=== PATIENT | female | born 1975 | race Caucasian/White ===

== ENCOUNTER 2022-05-26 16:29 | Inpatient (IN) | payer SELFPAY ==
[2022-05-26] VITALS (82 sets, daily range): BP systolic 125–170; BP diastolic 59–98; PULSE 85–116; RESP 14–20; TEMP 36.4–37.1; O2SAT 80–100; BMI 30.2
[2022-05-26 14:29] LABS: Hematocrit 35.4 % (37-47); Hemoglobin 11.9 g/dL (12.0-15.0); Mean Corp Hgb Conc 33.6 g/dL (32-36); Mean Corpuscular Hgb 29.6 pg (27.0-32.0); Mean Corpuscular Volume 88.1 fL (81-99); Mean Platelet Vol. 11.1 fl (6.2-12.0); Platelet Count 191 K/mm3 (150-450); RBC Distribution Width CV 13.7 % (11.6-14.6); RBC Distribution Width SD 44.1 fl (35.1-43.9); Red Blood Count 4.02 M/mm3 (4.2-5.4); White Blood Count 9.6 K/mm3 (4.4-11.0)
[2022-05-26 14:42] LABS: Protein, Urine (Random) 15.7 mg/dL (<11.9); Protein:Creat Ratio 351 mg/g CRE (0-200)
[2022-05-26 14:50] LABS: Partial Thromboplast Time 28.5 Seconds (24.1-36.2); Prothrombin Time (Protime)PT. 13.2 SECONDS (11.7-14.9)
[2022-05-26 14:52] LABS: AST(SGOT) 22 U/L (15-37); Alanine Aminotransfer ALT/SGPT 33 U/L (13-56); Creatinine, Serum 0.57 mg/dL (0.55-1.02); EST Glomerular Filtration Rate 122 mL/min (>60); Est Glom Filt Rate - Afr Amer 148 mL/min (>60); Estimated Creatinine Clearance 107.63 ml/min; Uric Acid 4.8 mg/dL (2.6-6.0)
[2022-05-26 15:00] LABS: AST(SGOT) 25 U/L (15-37); Alanine Aminotransfer ALT/SGPT 34 U/L (13-56); Albumin, Serum 2.7 g/dL (3.2-5.0); Alkaline Phosphatase 139 U/L (45-117); Bilirubin, Direct 0.22 mg/dL (0.00-0.30); Globulin 4.2 g/dL (2.2-4.2); Protein, Total 6.9 g/dL (6.4-8.2)
[2022-05-26] MEDS: Labetalol (Prefilled) 20 MG/4 ML IV ×2 (15:20→21:59)
[2022-05-26] MEDS: Labetalol 100 MG Tablet PO (15:49)
[2022-05-26] MEDS: 0.9% Saline Lock 10 ML Syringe IV ×2 (17:36→21:59)
[2022-05-26] MEDS: Lactated Ringers 1,000 ML 999 ML IV (17:45)
[2022-05-26] MEDS: Acetaminophen 500 MG Tablet 1000 MG PO ×2 (18:06→22:25)
[2022-05-26] MEDS: Lactated Ringers 1,000 ML 150 ML IV (18:45)
[2022-05-26] MEDS: Sodium Citrate/Citric Acid 30 ML UDC PO (18:50)
[2022-05-26] MEDS: Cefazolin 2 GM in 0.9% Normal Saline 100 ML IV (18:52)
--- NOTE | 2022-05-26 19:03 | PCM.HP.OB ---
HPI - General General Date of Admission: 05/26/22 Date of Service: 05/26/22 HPI Narrative JEFF ABBOTT, is a 46 F who presents with elevated blood pressure. Maternal Data Information Final ROOSEVELT: 07[birth year]17[birth year]22 Gestational age: 32&4 [facility]SH [facility], [facility] Medical History (Updated 05/26/22 @ 21:[address] Bryson Lay MD) Anxiety History of blood transfusion Severe pre-eclampsia affecting childbirth Stillborn, normal Superficial varicosities Vaginal after Home Medications [id number] 1 mg tablet 1 tab PO DAILY 05/26/22 [History Last Taken Unknown] Allergy/AdvReac Type Severity Reaction Status Date / Time No Known Allergies Allergy Verified 05/26/22 14:11 Surgical History (Updated 05/26/22 @ 19:[address] Bryson Lay MD) H/O dilation and curettage Previous section Previous section Social History Smoking Status: Never smoker Vital Signs Vital Signs Vital Signs: 05/26/22 14:27 05/26/22 14:27 05/26/22 14:27 Temperature Temperature Source Pulse Rate 102 H 110 H Respiratory Rate Blood Pressure 169/83 H Blood Pressure Mean BP Systolic 169 BP Diastolic 83 Blood Pressure Source Blood Pressure Position Blood Pressure Location Pulse Ox Oxygen Delivery Method 05/26/22 14:27 05/26/22 14:27 05/26/22 14:27 Temperature Temperature Source Temporal Pulse Rate 111 H Respiratory Rate Blood Pressure Blood Pressure Mean BP Systolic BP Diastolic Blood Pressure Source Blood Pressure Position Blood Pressure Location Pulse Ox 98 Oxygen Delivery Method 05/26/22 14:27 05/26/22 14:27 05/26/22 14:32 Temperature 98.1 F Temperature Source Pulse Rate 104 H Respiratory Rate Blood Pressure Blood Pressure Mean BP Systolic BP Diastolic Blood Pressure Source Blood Pressure Position Blood Pressure Location Pulse Ox 98 Oxygen Delivery Method 05/26/22 14:32 05/26/22 14:37 05/26/22 14:37 Temperature Temperature Source Pulse Rate 104 H Respiratory Rate Blood Pressure Blood Pressure Mean BP Systolic BP Diastolic Blood Pressure Source Blood Pressure Position Blood Pressure Location Pulse Ox 99 97 Oxygen Delivery Method 05/26/22 14:39 05/26/22 14:39 05/26/22 14:42 Temperature Temperature Source Pulse Rate 108 H 109 H Respiratory Rate Blood Pressure 158/82 H Blood Pressure Mean BP Systolic 158 BP Diastolic 82 Blood Pressure Source Blood Pressure Position Blood Pressure Location Pulse Ox Oxygen Delivery Method 05/26/22 14:42 05/26/22 14:47 05/26/22 14:47 Temperature Temperature Source Pulse Rate 108 H Respiratory Rate Blood Pressure Blood Pressure Mean BP Systolic BP Diastolic Blood Pressure Source Blood Pressure Position Blood Pressure Location Pulse Ox 99 98 Oxygen Delivery Method 05/26/22 14:49 05/26/22 14:49 05/26/22 14:52 Temperature Temperature Source Pulse Rate 110 H 113 H Respiratory Rate Blood Pressure 162/88 H Blood Pressure Mean BP Systolic 162 BP Diastolic 88 Blood Pressure Source Blood Pressure Position Blood Pressure Location Pulse Ox Oxygen Delivery Method 05/26/22 14:52 05/26/22 14:57 05/26/22 14:57 Temperature Temperature Source Pulse Rate 108 H Respiratory Rate Blood Pressure Blood Pressure Mean BP Systolic BP Diastolic Blood Pressure Source Blood Pressure Position Blood Pressure Location Pulse Ox 98 98 Oxygen Delivery Method 05/26/22 14:59 05/26/22 14:59 05/26/22 15:02 Temperature Temperature Source Pulse Rate 108 H 116 H Respiratory Rate Blood Pressure 170/89 H Blood Pressure Mean BP Systolic 170 BP Diastolic 89 Blood Pressure Source Blood Pressure Position Blood Pressure Location Pulse Ox Oxygen Delivery Method 05/26/22 15:02 05/26/22 15:07 05/26/22 15:07 Temperature Temperature Source Pulse Rate 100 Respiratory Rate Blood Pressure Blood Pressure Mean BP Systolic BP Diastolic Blood Pressure Source Blood Pressure Position Blood Pressure Location Pulse Ox 97 98 Oxygen Delivery Method 05/26/22 15:09 05/26/22 15:09 05/26/22 15:12 Temperature Temperature Source Pulse Rate 107 H 106 H Respiratory Rate Blood Pressure 166/90 H Blood Pressure Mean BP Systolic 166 BP Diastolic 90 Blood Pressure Source Blood Pressure Position Blood Pressure Location Pulse Ox Oxygen Delivery Method 05/26/22 15:12 05/26/22 15:17 05/26/22 15:17 Temperature Temperature Source Pulse Rate 106 H Respiratory Rate Blood Pressure Blood Pressure Mean BP Systolic BP Diastolic Blood Pressure Source Blood Pressure Position Blood Pressure Location Pulse Ox 98 97 Oxygen Delivery Method 05/26/22 15:20 05/26/22 15:20 05/26/22 15:22 Temperature Temperature Source Pulse Rate 115 H 105 H Respiratory Rate Blood Pressure 161/83 H Blood Pressure Mean BP Systolic 161 BP Diastolic 83 Blood Pressure Source Blood Pressure Position Blood Pressure Location Pulse Ox Oxygen Delivery Method 05/26/22 15:22 05/26/22 15:27 05/26/22 15:27 Temperature Temperature Source Pulse Rate 93 Respiratory Rate Blood Pressure Blood Pressure Mean BP Systolic BP Diastolic Blood Pressure Source Blood Pressure Position Blood Pressure Location Pulse Ox 97 96 Oxygen Delivery Method 05/26/22 15:29 05/26/22 15:29 05/26/22 15:29 Temperature Temperature Source Pulse Rate 97 Respiratory Rate Blood Pressure 153/83 H Blood Pressure Mean BP Systolic 153 BP Diastolic 83 Blood Pressure Source Blood Pressure Position Blood Pressure Location Pulse Ox 94 Oxygen Delivery Method 05/26/22 15:32 05/26/22 15:32 05/26/22 15:37 Temperature Temperature Source Pulse Rate 97 92 Respiratory Rate Blood Pressure Blood Pressure Mean BP Systolic BP Diastolic Blood Pressure Source Blood Pressure Position Blood Pressure Location Pulse Ox 95 Oxygen Delivery Method 05/26/22 15:37 05/26/22 15:39 05/26/22 15:39 Temperature Temperature Source Pulse Rate 97 Respiratory Rate Blood Pressure 142/85 H Blood Pressure Mean BP Systolic 142 BP Diastolic 85 Blood Pressure Source Blood Pressure Position Blood Pressure Location Pulse Ox 96 Oxygen Delivery Method 05/26/22 15:39 05/26/22 15:42 05/26/22 15:42 Temperature Temperature Source Pulse Rate 93 Respiratory Rate Blood Pressure Blood Pressure Mean BP Systolic BP Diastolic Blood Pressure Source Blood Pressure Position Blood Pressure Location Pulse Ox 94 95 Oxygen Delivery Method 05/26/22 15:47 05/26/22 15:47 05/26/22 15:49 Temperature Temperature Source Pulse Rate 101 H Respiratory Rate Blood Pressure 150/87 H Blood Pressure Mean BP Systolic 150 BP Diastolic 87 Blood Pressure Source Blood Pressure Position Blood Pressure Location Pulse Ox 98 Oxygen Delivery Method 05/26/22 15:49 05/26/22 15:52 05/26/22 15:52 Temperature Temperature Source Pulse Rate 96 89 Respiratory Rate Blood Pressure Blood Pressure Mean BP Systolic BP Diastolic Blood Pressure Source Blood Pressure Position Blood Pressure Location Pulse Ox 97 Oxygen Delivery Method 05/26/22 15:57 05/26/22 15:58 05/26/22 15:59 Temperature Temperature Source Pulse Rate 97 Respiratory Rate Blood Pressure 152/92 H Blood Pressure Mean BP Systolic 152 BP Diastolic 92 Blood Pressure Source Blood Pressure Position Blood Pressure Location Pulse Ox 80 Oxygen Delivery Method 05/26/22 15:59 05/26/22 16:02 05/26/22 16:02 Temperature Temperature Source Pulse Rate 93 92 Respiratory Rate Blood Pressure Blood Pressure Mean BP Systolic BP Diastolic Blood Pressure Source Blood Pressure Position Blood Pressure Location Pulse Ox 97 Oxygen Delivery Method 05/26/22 16:07 05/26/22 16:07 05/26/22 16:09 Temperature Temperature Source Pulse Rate 93 Respiratory Rate Blood Pressure 151/90 H Blood Pressure Mean BP Systolic 151 BP Diastolic 90 Blood Pressure Source Blood Pressure Position Blood Pressure Location Pulse Ox 97 Oxygen Delivery Method 05/26/22 16:09 05/26/22 16:12 05/26/22 16:12 Temperature Temperature Source Pulse Rate 96 92 Respiratory Rate Blood Pressure Blood Pressure Mean BP Systolic BP Diastolic Blood Pressure Source Blood Pressure Position Blood Pressure Location Pulse Ox 95 Oxygen Delivery Method 05/26/22 16:17 05/26/22 16:17 05/26/22 16:19 Temperature Temperature Source Pulse Rate 97 Respiratory Rate Blood Pressure 148/82 H Blood Pressure Mean BP Systolic 148 BP Diastolic 82 Blood Pressure Source Blood Pressure Position Blood Pressure Location Pulse Ox 96 Oxygen Delivery Method 05/26/22 16:19 05/26/22 16:22 05/26/22 16:22 Temperature Temperature Source Pulse Rate 97 95 Respiratory Rate Blood Pressure Blood Pressure Mean BP Systolic BP Diastolic Blood Pressure Source Blood Pressure Position Blood Pressure Location Pulse Ox 95 Oxygen Delivery Method 05/26/22 16:25 05/26/22 16:25 05/26/22 16:27 Temperature Temperature Source Pulse Rate 96 94 Respiratory Rate Blood Pressure Blood Pressure Mean BP Systolic BP Diastolic Blood Pressure Source Blood Pressure Position Blood Pressure Location Pulse Ox 94 Oxygen Delivery Method 05/26/22 16:27 05/26/22 16:29 05/26/22 16:29 Temperature Temperature Source Pulse Rate 94 Respiratory Rate Blood Pressure 144/81 H Blood Pressure Mean BP Systolic 144 BP Diastolic 81 Blood Pressure Source Blood Pressure Position Blood Pressure Location Pulse Ox 95 Oxygen Delivery Method 05/26/22 16:32 05/26/22 16:32 05/26/22 16:37 Temperature Temperature Source Pulse Rate 100 95 Respiratory Rate Blood Pressure Blood Pressure Mean BP Systolic BP Diastolic Blood Pressure Source Blood Pressure Position Blood Pressure Location Pulse Ox 97 Oxygen Delivery Method 05/26/22 16:37 05/26/22 16:39 05/26/22 16:39 Temperature Temperature Source Pulse Rate 96 Respiratory Rate Blood Pressure 149/83 H Blood Pressure Mean BP Systolic 149 BP Diastolic 83 Blood Pressure Source Blood Pressure Position Blood Pressure Location Pulse Ox 97 Oxygen Delivery Method 05/26/22 16:42 05/26/22 16:42 05/26/22 16:47 Temperature Temperature Source Pulse Rate 97 96 Respiratory Rate Blood Pressure Blood Pressure Mean BP Systolic BP Diastolic Blood Pressure Source Blood Pressure Position Blood Pressure Location Pulse Ox 97 Oxygen Delivery Method 05/26/22 16:47 05/26/22 16:52 05/26/22 16:52 Temperature Temperature Source Pulse Rate 99 Respiratory Rate Blood Pressure Blood Pressure Mean BP Systolic BP Diastolic Blood Pressure Source Blood Pressure Position Blood Pressure Location Pulse Ox 98 98 Oxygen Delivery Method 05/26/22 16:57 05/26/22 16:57 05/26/22 16:58 Temperature Temperature Source Pulse Rate 93 Respiratory Rate Blood Pressure 158/86 H Blood Pressure Mean BP Systolic 158 BP Diastolic 86 Blood Pressure Source Blood Pressure Position Blood Pressure Location Pulse Ox 98 Oxygen Delivery Method 05/26/22 16:58 05/26/22 17:02 05/26/22 17:02 Temperature Temperature Source Pulse Rate 96 100 Respiratory Rate Blood Pressure Blood Pressure Mean BP Systolic BP Diastolic Blood Pressure Source Blood Pressure Position Blood Pressure Location Pulse Ox 97 Oxygen Delivery Method 05/26/22 17:07 05/26/22 17:07 05/26/22 17:13 Temperature Temperature Source Pulse Rate 99 Respiratory Rate Blood Pressure 154/87 H Blood Pressure Mean BP Systolic 154 BP Diastolic 87 Blood Pressure Source Blood Pressure Position Blood Pressure Location Pulse Ox 97 Oxygen Delivery Method 05/26/22 17:13 05/26/22 17:13 05/26/22 17:13 Temperature Temperature Source Pulse Rate 96 94 Respiratory Rate Blood Pressure Blood Pressure Mean BP Systolic BP Diastolic Blood Pressure Source Blood Pressure Position Blood Pressure Location Pulse Ox 97 Oxygen Delivery Method 05/26/22 17:44 05/26/22 17:44 05/26/22 17:43 Temperature Temperature Source Pulse Rate 96 Respiratory Rate Blood Pressure 158/83 H Blood Pressure Mean BP Systolic 158 BP Diastolic 83 Blood Pressure Source Blood Pressure Position Blood Pressure Location Pulse Ox 98 Oxygen Delivery Method 05/26/22 17:48 05/26/22 17:48 05/26/22 17:53 Temperature Temperature Source Pulse Rate 94 95 Respiratory Rate Blood Pressure Blood Pressure Mean BP Systolic BP Diastolic Blood Pressure Source Blood Pressure Position Blood Pressure Location Pulse Ox 99 Oxygen Delivery Method 05/26/22 17:53 05/26/22 18:14 05/26/22 18:14 Temperature Temperature Source Pulse Rate 93 Respiratory Rate Blood Pressure 166/77 H Blood Pressure Mean BP Systolic 166 BP Diastolic 77 Blood Pressure Source Blood Pressure Position Blood Pressure Location Pulse Ox 98 Oxygen Delivery Method 05/26/22 18:29 05/26/22 18:29 05/26/22 18:44 Temperature Temperature Source Pulse Rate 99 Respiratory Rate Blood Pressure 169/83 H 170/86 H Blood Pressure Mean BP Systolic 169 170 BP Diastolic 83 86 Blood Pressure Source Blood Pressure Position Blood Pressure Location Pulse Ox Oxygen Delivery Method 05/26/22 18:44 05/26/22 17:42 Temperature 98.0 F Temperature Source Temporal Pulse Rate 98 98 Respiratory Rate 16 Blood Pressure 158/83 H Blood Pressure Mean 108 BP Systolic BP Diastolic Blood Pressure Source Monitor Blood Pressure Position Semi-Fowlers Blood Pressure Location Right Arm Pulse Ox 98 Oxygen Delivery Method Room Air Weight Weight: 176 lb Body Mass Index (BMI) 30.2 Physical Exam Const alert, oriented x3 and no apparent distress Chest inspection of chest normal GI soft to palpation, non-tender and non-distended Inspection: gravid Labs Labs Labs: Blood Type A POSITIVE Antibody Screen NEGATIVE Hct 35.4 % (37-47) L Hgb 11.9 g/dL (12.0-15.0) L Assessment & Plan (1) Severe pre-eclampsia affecting childbirth: COMMENT: 32&4 PLAN: (1) Severe range BP's - s/p IV labetalol. Labs normal other than elevated urine protein. Plan of care discussed with who recommends delivery as with suspected nephrotic syndrome & plan is for palliative care. (2) MOD - discussed R/B/A of options and patient desires to proceed with repeat section. informed consent signed. (3) Sterilization request - plan for bilateral salpingectomy. Risks of regret & failure reviewed. (4) Suspect congenital nephrotic syndrome - Plan is for palliative care. Please see [facility] records for details. (2) Previous section:
--- NOTE | 2022-05-26 19:21 | FALS_PTH ---
PATIENT: JEFF ABBOTT LOC: [facility] U#:[id number] AGE/SX: 46/F ROOM: [facility]018 RE05/26/[address]: Dr. Bryson Lay MD : 1975 BED: 1 DIS: 05/28/2022 SPEC #: [id number] RECD: 05/26/22 23:38 STATUS: ANETA REYaquelin #: [id number] DERRICK: 05/26/22 19:[address]: Bryson Lay DEPT: SURGICAL PATHOLOGY RECD BY: Jarred Donald ENTERED: 05/27/22 08:28 SP TYPE: FALL TUBES OTHR DR: Armando Sheehan PA-C Tissues: Fallopian tube Procedures: Surgery Specimen Level II Surgery Specimen Level IV HEADER OPERATION: Tubal ligation PRE-OP DIAGNOSIS: Sterilization TISSUE SUBMITTED: Fallopian tubes MICROSCOPIC DIAGNOSIS Right and left fallopian tubes, bilateral salpingectomies: Complete cross-sections of fallopian tubes. One fallopian tube with benign paratubal cyst. AM:maco 05/28/2022 MICROSCOPIC DESCRIPTION Slides are reviewed. GROSS DESCRIPTION Received in fixative is one container labeled with the patient's name and designated bilateral fallopian tubes. The specimen consists of two fallopian tubes with an average length of 7 cm and has an average diameter of 0.8 cm. Both fallopian tubes have normal fimbriated ends. One fallopian tube contains a smooth, glistening clear fluid-filled cyst measuring 2.2 cm adjacent to the fimbrial end. Bowling Ball Grader sections are submitted in two cassettes as follows: 1 - fallopian tube with cyst, 2 - the other fallopian tube. / AM:maco 05/27/2022 TC:3 CPT: 45977, 10631
[2022-05-26] MEDS: miSOPROStol 200 MCG Tablet 1000 MCG RC (19:27)
[2022-05-26] MEDS: Lactated Ringers 1,000 ML 50 ML IV (20:30)
--- NOTE | 2022-05-26 20:42 | EX.PCM.OBRPT ---
Maternal Data Information Final ROOSEVELT: 07/17/22 Gestational age: 32&4 [place] Doctor Who Attended Delivery: Krystal Webber Details Operative Information Date of Procedure: 05/26/22 Pre-Operative Diagnosis: (1) Prior section (2) Severe preeclampsia (3) Infant with suspected congenital nephrotic syndrome (4) Sterilization request Post-Operative Diagnosis: Same Indications for : Repeat Elective Indications Narrative: The patient was taken to the operating room where spinal anesthesia was placed & found to be adequate. She was prepped and draped in the dorsal supine position with a leftward tilt. A Pfannenstiel skin incision was made approximately 2 cm above the symphysis pubis and carried through to the underlying fascia with the scalpel. The fascia was incised incised in the midline and extended laterally with the Guillen scissors. The rectus muscles were in the midline and the peritoneum was entered carefully and bluntly. The peritoneal incision was stretched and the bladder blade was inserted. Vesicouterine peritoneum was tented up, incised & then bladder flap created gently. The uterine incision was made in a low transverse fashion with the scalpel and extended superiorly and inferiorly with blunt dissection. The 's head was brought to the incision in the flexed position and delivered without difficulty. The head was gently guided to allow delivery of the anterior and posterior shoulders. The body then delivered with fundal pressure in the standard fashion. The 3VC cord was clamped and cut. The was handed off to the waiting pediatric ophthalmologist. The placenta was delivered with fundal massage and gentle traction in the standard fashion. The uterus was exteriorized and cleared of clots and debris. 1000mcg intrauterine cytotec placed. The uterine incision was closed with #1 Vicryl suture in a running locked fashion. Monocryl suture was used in an imbricating fashion. 2 additional figure of eight sutures were placed to obtain excellent hemostasis. The incision was examined and was found to be hemostatic. Attention was turned to the fallopian tubes. The right fallopian tube was grasped, cauterized & excised with the ligasure. Excellent hemostasis obtained. Then the left fallopian tube was grasped, cauterized & excised with the ligasure. Excellent hemostasis obtained. The uterus was returned to the abdominal cavity. Tubal excision sites were again examined & found to be hemostatic. After irrigating Lexy was placed over the uterine incision as some areas were denuded (but hemostatic). At the left uterine angle fibrillar was placed due to a small area of scant bleeding. After placing the fibrillar the area was monitored & excellent hemostasts noted. The rectus muscle was examined and any bleeding was Bovie cauterized. The fascia was closed with PDS suture in a running standard fashion. The subcutaneous tissue was examining and any bleeding was Bovie cauterized. The subcutaneous tissue was reapproximated with interrupted sutures. The skin was closed in a subcuticular fashion. All sponge, lap, and needle counts were correct. The patient was taken to her room for recovery in a stable condition. Classification: BETSY Procedure Type: bilateral salpingectomy central office technician #1: Keri Contreras Type of Anesthesia: Spinal Antibiotic Given: Ancef 2 grams IV x1 Drain: Oswald to straight drain Estimated Blood Loss: 1,000ml Fluids Replaced: 1,000ml Procedure Start Time: 19:15 Procedure Stop Time: 20:15 Findings Description of Procedure: Normal maternal uterus and adnexa Presentation: Positive for Vertex Amniotic Membrane Rupture Type: Artificial Amniotic Fluid Description: - (Anhydramnios) Placental Delivery Description: Expressed Placenta Disposition: [facility] Specimen(s) Sent to Pathology: None Cord Vessel Description: 3 Vessels Cord Entanglement: Around neck x 1, loose Infant A Gender: Male (No apgars as for palliative care) Delayed Cord Clamping: No Complications Complications: None
[2022-05-26] MEDS: Magnesium Sulfate 4gm/100mL 4 GM/100 ML IV.SOLN. IV (20:47)
[2022-05-26] MEDS: Magnesium Sulfate 20 GM/500 ML BAG IV (21:10)
[2022-05-26] MEDS: Ketorolac 30 MG/ML Syringe IV (22:25)
[2022-05-26] MEDS: Labetalol 200 MG Tablet PO (22:25)
[2022-05-26 23:42] LABS: Pathology Specimen OB SEE PATHOLOGY REPORT
[2022-05-27] VITALS (49 sets, daily range): BP systolic 99–131; BP diastolic 56–84; PULSE 72–90; RESP 14–18; TEMP 36.2–37; O2SAT 96–99
--- NOTE | 2022-05-27 01:30 | NURSING ---
incentive spirometer reviewed with pt and pt verbalizes understanding. pt aware of need to perform 10 reps each hour while awake. this RN observed first round using IS. will continue to remind pt to use.
[2022-05-27] MEDS: Ketorolac 30 MG/ML Syringe IV ×3 (04:32→16:11)
[2022-05-27] MEDS: Acetaminophen 500 MG Tablet 1000 MG PO ×4 (04:32→23:48)
[2022-05-27] MEDS: 0.9% Saline Lock 10 ML Syringe IV (04:33)
[2022-05-27 04:57] LABS: Hematocrit 33.2 % (37-47); Hemoglobin 11.5 g/dL (12.0-15.0); Mean Corp Hgb Conc 34.6 g/dL (32-36); Mean Corpuscular Hgb 30.5 pg (27.0-32.0); Mean Corpuscular Volume 88.1 fL (81-99); Mean Platelet Vol. 11.1 fl (6.2-12.0); Platelet Count 182 K/mm3 (150-450); RBC Distribution Width CV 13.6 % (11.6-14.6); RBC Distribution Width SD 43.7 fl (35.1-43.9); Red Blood Count 3.77 M/mm3 (4.2-5.4); White Blood Count 14.2 K/mm3 (4.4-11.0)
--- NOTE | 2022-05-27 06:33 | NURSING ---
dr hernandez updated on most recent pt BP 99/56. states to hold AM dose of labetalol and reevaluate prior to next administration time. invoicing machine operator updated on plan of care. pt verbalizes understanding.
[2022-05-27] MEDS: Enoxaparin 40 MG/0.4 ML Syringe SC (06:52)
[2022-05-27] MEDS: Magnesium Sulfate 20 GM/500 ML BAG IV ×2 (06:52→15:59)
--- NOTE | 2022-05-27 07:11 | PN.OBGYN_ITS ---
Subjective Subjective Korina controlled. She is coping OK. Objective Data Objective Data Vital Signs: Vital Signs Temp Pulse Resp BP Pulse Ox O2 Del Method 97.5 F L 84 14 107/67 99 Room Air 05/27/22 06:59 05/27/22 06:59 05/27/22 06:59 05/27/22 06:59 05/27/22 06:59 05/27/22 06:59 Oxygen Delivery Method Room Air Weight: 176 lb Body Mass Index (BMI) 30.2 Intake & Output: Intake and Output for Last 24 Hours 05/25/22 05/26/22 05/27/22 23:59 23:59 23:59 Intake Total 1512.5 / 1512.5 710 / 710 Output Total 1000 / 1000 675 / 675 Balance 512.5 / 512.5 35 / 35 Lab / Micro Data Result Diagrams: 05/27/22 04:40 05/26/22 14:15 Labs: Laboratory Results - last 24 hr 05/26/22 14:15: WBC 9.6, RBC 4.02 L, Hgb 11.9 L, Hct 35.4 L, MCV 88.1, MCH 29.6, MCHC 33.6, RDW Std Deviation 44.1 H, RDW Coeff of Christophe 13.7, Plt Count 191, MPV 11.1 05/26/22 14:15: PT 13.2, INR 1.0, APTT 28.5 05/26/22 14:15: U Random Total Protein 15.7 H, Urine Creatinine 44.70, Protein/Creatinin Ratio 351 H 05/26/22 14:15: Creatinine 0.57, Estim Creat Clear Calc 107.63, Est GFR (MDRD) Af Amer 148, Est GFR (MDRD) Non-Af 122, Uric Acid 4.8, AST 22, ALT 33 05/26/22 14:15: Total Bilirubin 0.60, Direct Bilirubin 0.22, AST 25, ALT 34, Alkaline Phosphatase 139 H, Total Protein 6.9, Albumin 2.7 L, Globulin 4.2 05/26/22 16:00: Blood Type A POSITIVE, Antibody Screen NEGATIVE 05/27/22 04:40: WBC 14.2 H, RBC 3.77 L, Hgb 11.5 L, Hct 33.2 L, MCV 88.1, MCH 30 .5, MCHC 34.6, RDW Std Deviation 43.7, RDW Coeff of Christophe 13.6, Plt Count 182, MPV 11.1 Micro: Microbiology 05/26/22 18:20 Nasal Secretion SARS-CoV-2 Antigen (Rapid) - Final Physical Exam Const alert, oriented x3 and no apparent distress HEENT normocephalic GI soft to palpation, non-tender and non-distended GI Narrative: fundus firm, mid & below umbilicus Incision - bandage c/d/i Extremity normal to inspection and no calf tenderness Assessment & Plan (1) Severe pre-eclampsia affecting childbirth: COMMENT: POD#1 PLAN: Severe preE - continue magnesium for 24 hours. Labetalol 200mg tid & hold for low BP. Heme - HDS ID - AF, no signs infection GI - ADAT - peralta Routine care (2) : PLAN: Patient is coping appropriately & supportive.
[2022-05-27] MEDS: Senna/Docusate Sodium 1 Tablet PO (09:38)
[2022-05-27] MEDS: Labetalol 200 MG Tablet PO ×2 (14:17→21:20)
--- NOTE | 2022-05-27 16:05 | CASEMGMT ---
Social Work Labor and Delivery Unit Consult received due to bereavement and loss. Records reviewed and collaborated with nursing staff. Family has been present today, and the father of baby was able to take the baby home for burial. Presented to patient's room and found patient/mother of baby sleeping with a sister reading quietly in the room. Considering all that as occurred since last evening with , baby's passing and multiple visitors let MOB continue to sleep. Will try again later today as time allows, or tomorrow 05.28.2022 to check in for emotional support and resources as indicated. -KOREY Rosas, REGISTRAR [employer]
[2022-05-27] MEDS: Lactated Ringers 1,000 ML 50 ML IV (16:14)
[2022-05-27] MEDS: Ibuprofen 600 MG Tablet PO (21:20)
[2022-05-28] VITALS (9 sets, daily range): BP systolic 120–142; BP diastolic 60–77; PULSE 71–83; RESP 14–18; TEMP 36.1–37; O2SAT 97–99
[2022-05-28] MEDS: Ibuprofen 600 MG Tablet PO ×2 (02:09→10:13)
[2022-05-28] MEDS: Acetaminophen 500 MG Tablet 1000 MG PO ×2 (05:30→13:41)
[2022-05-28] MEDS: Labetalol 200 MG Tablet PO ×2 (05:31→13:41)
--- NOTE | 2022-05-28 07:25 | NURSING ---
bedside report given to Aamir Rogers RN who is assuming care of pt at this time
--- NOTE | 2022-05-28 08:23 | PCM.PN.OB ---
Subjective Subjective Doing well per patient and nursing staff. Ambulating and taking PO without difficulty. Voiding and passing flatus. Pain controlled. Denies headache, visual changes, chest pain, shortness of breath, leg pain or increased bleeding. Lochia normal. Doing well emotionally with loss of . Objective Data Objective Data Vital Signs: Vital Signs Temp Pulse Resp BP Pulse Ox O2 Del Method 98.6 F 78 18 121/69 H 98 Room Air 05/28/22 05:23 05/28/22 08:02 05/28/22 05:23 05/28/22 08:02 05/28/22 05:23 05/28/22 05:23 Oxygen Delivery Method Room Air Weight: 176 lb Body Mass Index (BMI) 30.2 Intake & Output: Intake and Output for Last 24 Hours 05/26/22 05/27/22 05/28/22 23:59 23:59 23:59 Intake Total 1512.5 / 1512.5 3110.00 / 3110.00 Output Total 1000 / 1000 3555 / 3555 Balance 512.5 / 512.5 -445.00 / -445.00 Lab / Micro Data Result Diagrams: 05/27/22 04:40 05/26/22 14:15 Micro: Microbiology 05/26/22 18:20 Nasal Secretion SARS-CoV-2 Antigen (Rapid) - Final Physical Exam Const alert and oriented x3 General Appearance: cooperative Orientation / Consciousness: awake, oriented to person, oriented to place and oriented to time Exam Limitations: no limitations HEENT normocephalic Head and Scalp: normal to inspection, normocephalic and atraumatic Face and Sinus: normal facial exam Eyes General Eye: normal appearance of both eyes Neck full ROM Chest Chest: symmetrical chest wall rise Resp normal respiratory effort and normal air movement Auscultation: clear to auscultation bilaterally Cardio regular rate, regular rhythm, S1 normal heart sound, S2 normal heart sound, no murmurs, no rub, no gallops and no clicks GI normal to inspection, nondistended, normoactive bowel sounds and non-tender GI Narrative: Dressing dry and intact appearance of the vagina normal Bladder / Kidney Exam: no CVA tenderness Back/Spine normal ROM Extremity normal to inspection and full ROM Skin no rashes or lesions noted Neuro oriented x3, CN's II-XII intact bilaterally and moves all extremities Sensorium / Orientation: awake, alert and oriented to person Motor Exam: clonus absent Deep Tendon Reflexes: Rt Patellar (L4): 2+ and Lt Patellar (L4): 2+ Assessment & Plan (1) : (2) Status post repeat low transverse section: (3) Severe pre-eclampsia affecting childbirth: COMMENT: POD#2 PLAN: Plan 1) POD #2 2) BP mildly elevated, labetalol 200mg PO TID. Magnesium stopped at 1 on 05/27/22 3) Pain controlled 4) I&O 5) Would like discharged today. Discussed would recommend 24 post magnesium infusion. Will consult due to slight elevation in BP prior to discharge. 6) Will need follow up in 1 week for incision and Blood pressure check.
[2022-05-28] MEDS: Senna/Docusate Sodium 1 Tablet PO (10:12)
[2022-05-28] MEDS: Enoxaparin 40 MG/0.4 ML Syringe SC (10:13)
--- NOTE | 2022-05-28 14:26 | PCM.DC.SUM ---
Providers Date of Admission: 05/26/22 Primary Care Physician: Dr. Armando Sheehan PA-C Reason For Visit: Diagnosis Discharge Diagnosis (1) : Status: Acute Code(s): P96.9 - Condition originating in the period, unspecified (2) Status post repeat low transverse section: Status: Acute Code(s): Z98.891 - History of uterine scar from previous surgery (3) Severe pre-eclampsia affecting childbirth: Status: Acute Code(s): O14.14 - Severe pre-eclampsia complicating childbirth Plan 1) POD #2 2) BP mildly elevated, labetalol 200mg PO TID. Magnesium stopped at 2110 on 05/27/22 3) Pain controlled 4) I&O 5) Would like discharged today. Discussed would recommend 24 post magnesium infusion. Will consult due to slight elevation in BP prior to discharge. 6) Will need follow up in 1 week for incision and Blood pressure check. Medications at Discharge Home Medications [id number] 1 mg tablet 1 tab PO DAILY 05/26/22 acetaminophen 500 mg tablet 1,000 mg PO Q6H #30 tabs 05/28/22 ibuprofen 600 mg tablet 600 mg PO Q6H #30 tabs 05/28/22 labetalol 200 mg tablet 200 mg PO TID #30 tabs 05/28/22 sennosides 8.6 mg-docusate sodium 50 mg tablet (Stool Softener-Stimulant Laxative) 1 - 2 tab PO DAILY #30 tabs 05/28/22 Weight / BMI Weight Weight: 176 lb Body Mass Index (BMI) 30.2 ABG / Lab / Microbiology Data Result Diagrams: 05/27/22 04:40 05/26/22 14:15 Microbiology: Microbiology 05/26/22 18:20 Nasal Secretion SARS-CoV-2 Antigen (Rapid) - Final Meaningful Use Info Meaningful Use Diagnoses (Choose all that apply): None applicable Discharge Plan Admission Admit Date/Time: 05/26/22 16:29 Primary Reason for Your Visit: section, Preeclampsia Attending Provider: Bryson Lay Primary Care Provider: Armando Sheehan Instructions Additional Instructions / Restrictions: Please check blood pressure prior to taking medication three times a day. If blood pressure is 100/60 please hold medication till next dose. If blood pressure is 160/110 please notify provider. If blood pressure increasing please call to be seen sooner. Discharge Orders/Prescriptions Prescriptions: New acetaminophen 500 mg Tablet 1,000 mg PO Q6H Qty: 30 0RF ibuprofen 600 mg Tablet 600 mg PO Q6H Qty: 30 0RF labetalol 200 mg Tablet 200 mg PO TID Qty: 30 0RF sennosides-docusate sodium [Stool Softener-Stimulant Laxat] 8.6-50 mg Tablet 1 - 2 tab PO DAILY Qty: 30 0RF Continued [id number] 1 mg Tablet 1 tab PO DAILY Referrals / Follow Up: Armando Sheehan PA-C [Primary Care Provider] - Bryson Lay MD [Med Staff - Active Staff] - (Follow up in one week for incision and blood pressure check ) Disposition Disposition (needs filled in before D/C Order can be placed): Home, Self Care
--- NOTE | 2022-06-01 09:53 | NURSING ---
Follow up call completed this morning. Mother reports she is coping fairly well, states they are doing their best to move on and states Dani is a great helper ad support person. She reports he is coping well too. She reports that aside from hormonal night sweats she is sleeping very well. Reports she is monitoring her bp every 2 hours and we reviewed the ranges that would be worrisome and would need to call Dr. She reports her problem is that after taking her medicine at times her bp drops to 114/? and makes her feel very dizzy. She has a follow up appt scheduled with Dr Lay tomorrow and is keeping track of her BP and how she is feeling to report this. At times her bp has been as high as 150 as the top number. Reports her bottom number is usually around 80's. Her bleeding is about the same, not too heavy and her dressing from her C/S remains clean and intact. Reports the dr said they would remove it at tomorrow appt. Has some headaches but feels though are also hormonal and mild. Her milk did not come in. She denies questions other than reviewing BP levels. Is open to future calls/cards from our bereavement team and states she was satisfied with her care at [facility]. Really felt cared for.
== END 2022-05-28 15:45 | disposition home or self-care (01) | DRG 784 ==
LOC: WPOUT 16:29 → WP 16:29
PROVIDERS: Admitting Provider Obstetrics & Gynecology; PCP Physician Assistant; Referring Provider Obstetrics & Gynecology; Visit Provider Obstetrics & Gynecology
DX: O35.8XX0 Maternal care for other (suspected) fetal abnormality and damage, not applicable or unspecified (principal); O41.03X0 Oligohydramnios, third trimester, not applicable or unspecified; O14.14 Severe pre-eclampsia complicating childbirth; O34.211 Maternal care for low transverse scar from previous cesarean delivery; O69.81X0 Labor and delivery complicated by cord around neck, without compression, not applicable or unspecified; Z3A.32 32 weeks gestation of pregnancy; Z37.1 Single stillbirth; Z30.2 Encounter for sterilization; Z87.59 Personal history of other complications of pregnancy, childbirth and the puerperium; Z79.899 Other long term (current) drug therapy
CPT/HCPCS: 59025; 59050; 80076; 82565; 82570; 84156; 84450; 84460; 84550; 85027; 85610; 85730; 86850; 86900; 86901; 87811; 88302; 88305; 99218; J7120; A4216; G0378